=== PATIENT | female | born 1995 | race African-American/Black ===

== ENCOUNTER 2017-07-09 23:23 | Observation (INO) | payer MEDICAID ==
[2017-07-10] MEDS ORDERED: FERR140T2 PO (07:24)
[2017-07-10] MEDS ORDERED: PREN-96 PO (07:24)
== END 2017-07-10 01:24 | disposition home or self-care (01) | DRG 955 ==
LOC: LDRP 23:23
PROVIDERS: ADMIT Specialist; ATTEND Specialist
DX: O26.899 Other specified pregnancy related conditions, unspecified trimester (principal); R10.9 Unspecified abdominal pain; Z3A.00 Weeks of gestation of pregnancy not specified
CPT/HCPCS: 59025; 76815; 81002; G0378

== ENCOUNTER 2024-10-10 14:50 | Observation (INO) | payer MEDICAID ==
[~2024-10-10 14:50] MED LIST: FERR140T3 PO; PREN-96 PO
--- NOTE | 2024-10-10 16:20 | DVH ---
EXAM: US OB ULTRASOUND COMP GTR 14 WKS CLINICAL HISTORY: s/p fall COMPARISON: None TECHNIQUE: Grayscale, color-flow Doppler, and spectral Doppler ultrasound of the pelvis is performed by transabdominal technique. Findings: Single live intrauterine in breech presentation with heart rate of 133 bpm. Cervical os appears closed and measures 3.4 cm in length. Placenta is anterior in location without evidence of previa, accreta, or abruption. Limited evaluation of anatomy. Estimated gestational age 20 weeks 1 day based on parameters which include biparietal diameter 4.6 cm, head circumference 17.7 cm, abdominal circumference 15.1 cm, and femur length 3.2 cm. Standar d ratios within normal limits. Estimated weight 337 g (0 lb 12 oz ). MVP 6.1 cm. Impression: 1. Single live intrauterine in breech presentation with heart rate of 133 bpm. 2. Estimated gestational age 20 weeks 1 day with estimated date of confinement 02/26/2025.
--- NOTE | 2024-10-10 16:28 | DVHDS2 ---
Physician Discharge Progress N Final Diagnosis: s/p fall Operations or Procedures: Operations or Procedures S: 29yo IUP@20.3wks presents to OB triage after falling and hitting her left lower abdomen on a railing at 1500. Has muscle soreness at side that radiates down her left leg. +FM, denies UCs/VB/LOF. No PNC due to [employer] insurance issues. Taking PNV and iron. Tylenol PO offered, pt declined, states "she does not like to take medications" OB hx: x1 PMH: anemia and chronic bronchitis O: VSS +FHTs via doppler TOCO: no UCs noted A: 29yo IUP@20.3wks s/p fall P: D/C home Recommended OTC arnica gel for muscle soreness. SAB precautions reviewed. Dr. Weinstein consulted, agrees with POC. Referred to [facility], appt made with Dr. Weinstein for 10/11/24 at 0900. 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 Findings: Single live intrauterine in breech presentation with heart rate of 133 bpm. Cervical os appears closed and measures 3.4 cm in length. Placenta is anterior in location without evidence of previa, accreta, or abruption. Limited evaluation of anatomy. Estimated gestational age 20 weeks 1 day based on parameters which include biparietal diameter 4.6 cm, head circumference 17.7 cm, abdominal circumference 15.1 cm, and femur length 3.2 cm. Standard ratios within normal limits. Estimated weight 337 g (0 lb 12 oz ). MVP 6.1 cm. Impression: 1. Single live intrauterine in breech presentation with heart rate of 133 bpm. 2. Estimated gestational age 20 weeks 1 day with estimated date of confinement 02/26/2025. ATED BY: ANA MARIA NICOLAS DO DICTATED DATE/TIME: 10/10/24 1618 SIGNED BY: ANA MARIA NICOLAS DO SIGNED DATE/TIME: 10/10/24 1618 CC: Condition on Discharge: Stable Disposition: Home Discharge Instructions: Diet: Regular Activity: No Restrictions, As Tolerated Medications: see med list Follow Up Care: Specialist: Referred to [facility], appt made with Dr. Weinstein for 10/11/24 at 0900. Discharge Statement: "Patient was advised to return to the ER or call 911 if any headaches, dizziness, shortness of breath, chest pain, abdominal pain, bleeding, fevers, or worsening of medical condition. Patient was counseled about treatment plan, medications, possible side effects, patientverbalized understanding. All questions were answered to the best of my ability. This discharge took greater then 30 minutes in planning, reviewing documentation, counseling the patient, and discussing with other team members." Visit Coding OBGYN Date of Service: Oct 10, 2024 Billing Provider: JOSE MANUEL ELLINGTON CNM COMMUNITY RELATIONS REPRESENTATIVE Common Visit Codes: 92480-[id number] OBS CARE (HIGH) JOSE MANUEL ELLINGTON CNM Oct 10, 2024 16:28
== END 2024-10-10 16:45 | disposition home or self-care (01) ==
LOC: LDRP 14:50 → UNDOADMOB 14:50 → LDRP 15:06 → UNDODISOB 16:45
PROVIDERS: ADMIT Obstetrics & Gynecology; ATTEND Obstetrics & Gynecology
DX: O26.893 Other specified pregnancy related conditions, third trimester (principal); R10.32 Left lower quadrant pain; W18.39XA Other fall on same level, initial encounter; Y93.89 Activity, other specified; Y92.89 Other specified places as the place of occurrence of the external cause; Y99.8 Other external cause status; Z98.890 Other specified postprocedural states; Z79.899 Other long term (current) drug therapy
CPT/HCPCS: 76805; 81002; 94760; G0378

== ENCOUNTER 2024-11-04 17:10 | Observation (INO) | payer OTHER ==
[~2024-11-04] VITALS: Ht 165.1 cm; Wt 81.2 kg
--- NOTE | 2024-11-04 18:34 | DVH ---
EXAM: US OB ULTRASOUND COMP GTR 14 WKS HISTORY: Decreased movement COMPARISON: US OB ULTRASOUND COMP GTR 14 WKS on DOS: 10/10/24 TECHNIQUE: Transabdominal and endovaginal real time de la vega scale, color, and doppler evaluation. Perman ent images are maintained in the patient record. FINDINGS: GA by previous US/LMP: 24 weeks, 6 days VICENTE by previous US/LMP: 02/18/25 US GESTATIONAL AGE: 24 weeks, 2 days US VICENTE: 02/22/25 ESTIMATED WEIGHT: 693 g. HEART RATE: 157 bpm BPD: 5.89 cm, 24 weeks 0 days HC: 22.05 cm, 24 weeks 0 days AC: 19.84 cm, 24 weeks 3 days FL: 4.39 cm, 24 weeks 3days HC/AC: 1.11 ANATOMY: Normal head, 4 chamber heart, face, spine, stomach, kidneys, cord insertion, bladder, extrem ities Single live intrauterine . Anterior placenta. No placenta abruption. IMPRESSION: 1. Single viable gestation with normal cardiac heart rate.
[2024-11-04 18:37] LABS: Hemoglobin 11.2 g/dL (12.2-16.2); Nucleated Red Blood Cells % 0.0 %
[2024-11-04 18:38] LABS: Hematocrit 32.6 % (36.0-46.0); Mean Corpuscular Hemoglobin 26.6 pg (28.0-32.0); Mean Corpuscular Volume 77.6 fL (80.0-100.0)
[2024-11-04 18:42] LABS: Alanine Aminotransferase 10 U/L (7-40); Albumin 3.9 g/dL (3.2-4.8); Alkaline Phosphatase 75 U/L (46-116); Anion Gap 7 (5-15); Calcium 8.9 mg/dL (8.7-10.4); Carbon Dioxide 21 mmol/L (20-31); Glucose 76 mg/dL (74-106); Potassium 3.9 mmol/L (3.5-5.1); Sodium 136 mmol/L (136-145); Total Protein 7.0 g/dL (5.7-8.2)
[2024-11-04 18:44] LABS: BUN/Creatinine Ratio 11.1 (10.0-20.0); Bilirubin, Total 0.2 mg/dL (0.2-1.0); Blood Urea Nitrogen < 5 mg/dL (9-23); Chloride 108 mmol/L (98-107)
[2024-11-04 18:53] LABS: INR 0.95 (0.9-1.15); Partial Thromboplastin Time 27.9 SEC (24.5-34.5); Prothrombin Time 10.1 sec (9.3-11.8)
[2024-11-04] MEDS: LACTATED RINGER'S 1,000 ML IV ONE (19:14)
[2024-11-04] MEDS: ONDANSETRON HCL 4 MG/2 ML VIAL IV PRN (19:14)
[2024-11-04] MEDS: LACTATED RINGER'S 1,000 ML IV SCH (19:15)
[2024-11-04] MEDS: FAMOTIDINE (10MG/ML) 2ML VL IV ONE (19:40)
--- NOTE | 2024-11-04 20:20 | DVHDS2 ---
Physician Discharge Progress N Final Diagnosis: Diarrhea, Nausea and vomiting IUP at 24weeks Discharged from OB to ER due to pt complains of chest pain and blood in the stool Operations or Procedures: Operations or Procedures S: Per report pt presented to place with report of diarrhea, nausea and vomiting x weeks, weight loss and decreased movement Also decreased movement .O: EFM: FHR baseline 140 moderate variability with acceleration, no deceleration UC: no noted with toco, none noted on palpation and pt reports she doesn't feel any contraction OB ultrasound: live SIUP @US GA 24w 6d, FHR 157bpm A: IUP at 24w Nausea and Vomiting P: IV hydration in progress at time of assuming care Zofran 4mg IV Patient later reports feeling movement for the first time today. Per RN patient still vomited about 25minutes after Zofran administration Pepcid ordered 1934: Call received from RN that patient reports chest pain P: Consulted with Dr. Emelia Weinstein, recommends ER evaluation Patient also now reports she had blood in her stool Discharge to ER to be evaluated for non-obstetric symptoms reported by patient Consultations: Consultations Consulted with Dr. Emelia Weinstein, regarding chest pain reported by the patient She recommends ER evaluation Discharge to ER to be evaluated for non-obstetric symptoms reported by patient Patient also now reports she had blood in her stool Commentary: Commentary Obstetrically stable at time of discharge to ER. Condition on Discharge: Stable Disposition: Acute Care Facility Discharge Instructions: Diet: Regular, See Comment Diet comment: Or as recommended after eveluation by ER provider(s) Activity: No Restrictions, As Tolerated Follow Up/Referral: Advised to follow up with a OB Provider within the next 3days Medications: None Follow Up Care: Discharge Statement: "Patient was advised to return to the ER or call 911 if any headaches, dizziness, shortness of breath, chest pain, abdominal pain, bleeding, fevers, or worsening of medical condition. Patient was counseled about treatment plan, medications, possible side effects, patientverbalized understanding. All questions were answered to the best of my ability. This discharge took greater then 30 minutes in planning, reviewing documentation, counseling the patient, and discussing with other team members." Visit Coding OBGYN Date of Service: Nov 04, 2024 Billing Provider: PATRICIA CAO CNM CALL OUT OPERATOR Common Visit Codes: 24905-NCA/OBS SAME DATE (HIGH) CALL OUT OPERATOR Procedure Codes: 30584-16- NON-STRESS TEST PATRICIA CAO CNM Nov 04, 2024 20:20
[2024-11-04] MEDS ORDERED: PREN-96 PO (21:47)
[2024-11-04] MEDS ORDERED: PYRI50TA PO (21:47)
== END 2024-11-04 20:07 | disposition home or self-care (01) ==
LOC: LDRP 17:10
PROVIDERS: ADMIT Obstetrics & Gynecology; ATTEND Obstetrics & Gynecology
DX: O36.8120 Decreased fetal movements, second trimester, not applicable or unspecified (principal); O21.2 Late vomiting of pregnancy; O99.891 Other specified diseases and conditions complicating pregnancy; R07.89 Other chest pain; R19.5 Other fecal abnormalities; R19.7 Diarrhea, unspecified; Z3A.24 24 weeks gestation of pregnancy; Z98.890 Other specified postprocedural states; Z79.899 Other long term (current) drug therapy
CPT/HCPCS: 36415; 76805; 80053; 81002; 83036; 85025; 85610; 85730; 86703; 86762; 86780; 86803; 86850; 86900; 86901; 87340; 94760; 96361; 96374; 96375; G0378; 96365; 96366

== ENCOUNTER 2024-11-04 20:12 | Emergency (ER) | payer OTHER ==
[~2024-11-04] VITALS: Ht 165.1 cm; Wt 83.2 kg
[2024-11-04 20:14] VITALS: BP 103/57; PULSE 78; RESP 20; TEMP 97.9; O2SAT 99
[2024-11-04] MEDS ORDERED: PYRI50TA PO (21:47)
[2024-11-04] MEDS ORDERED: PREN-96 PO (21:47)
--- NOTE | 2024-11-04 21:55 | ED.PDOC ---
History of Present Illness HPI Comments 29-year-old female who presents with chief complaint of chest pain, chronic nausea and vomiting, and bloody stools with diarrhea. Patient reports being 28 weeks and developing chest pain gagging, recently after dealing with 2 week history of diarrhea with occasional blood in stools and nausea and vomiting since this started for . She states it being sent over from Labor [facility] after being evaluated current status of her . Patient reports on being Zofran, and ultrasound imaging study that showed no current concern for . No establish OBGYN care, currently. Denies having any further associated symptoms. REVIEW OF SYSTEMS: General: No fever, no chills, or fatigue HEENT: No sore throat, no earache, no congestion, no neck pain. Cardiac: Chest pain. No palpitations. Lungs: No shortness of breath, no cough. GI: Nausea, vomiting, diarrhea, bloody stools, no constipation, no abdominal pain : No dysuria, frequency, or urgency. No hematuria. Musculoskeletal: No joint pain , no joint swelling, no extremity edema. Skin: No rash, no itching. Neuro: No headache, no dizziness, no weakness PHYSICAL EXAM: General: Awake, alert and oriented. No acute distress. Skin: Skin in warm, dry and intact. Appropriate color for ethnicity. HEENT: The head is normocephalic and atraumatic. Conjunctivae are clear without exudates or hemorrhage. Sclera is non-icteric. EOM are intact. No signs of nystagmus. Eyelids are normal in appearance without swelling or lesions. Oral mucosa is pink and moist Neck: The neck is supple with normal range of motion. No JVD. Cardiac: Heart rate and rhythm are normal. No murmurs, gallops, or rubs are auscultated. Respiratory: No signs of respiratory distress. Lung sounds are clear in all lobes bilaterally without rales, rhonchi, or wheezes. Abdominal: Abdomen. Abdomen is soft, non-tender without distention, guarding o r rigidity. Bowel sounds are present and normoactive in all four quadrants. Extremities: Upper and lower extremities are atraumatic in appearance without deformity or edema. Neurological: The patient is awake, alert and oriented to person, place, and time with normal speech. Speech is clear. There is no facial asymmetry. Ambulating without difficulty. Psychiatric: Appropriate mood and affect. Good judgement and insight. Chief Complaint: Nausea/Vomiting Time Seen by MD: 21:01 Primary Care Provider: NONE Allergies: Coded Allergies: Doxycycline (Verified Allergy, Unknown, 10/10/24) Penicillins (Verified Allergy, Unknown, 10/10/24) Tramadol (Verified Allergy, Unknown, 10/10/24) Home Meds Active Scripts Vit W/ Ferrous Fumara ( One Daily) Daily Tab, 1 TAB PO DAILY, #90 TAB 3 Refills Prov:PANCHO RO MD 11/04/24 Pyridoxine HCl (Pyridoxine Hydrochloride) 50 Mg Tab, 25 MG PO Q4HPRN PRN for 7 Days, #18 TAB Prov:PANCHO RO MD 11/04/24 Reported Medications Ferrous Sulfate (FERROUS SULFATE) 140 Mg Tab, 140 MG PO, TAB 07/10/17 Vit W/ Ferrous Fumara ( One Daily) Daily Tab, 1 TAB PO DAILY, #90 TAB 3 Refills 07/10/17 Information Source: Patient Mode of Arrival: Ambulatory Past Medical History PAST MEDICAL HISTORY: Denies Surgical History: Denies all surgeries ZIGZAG TUNNEL ELASTIC OPERATOR History: No Pertinent ZIGZAG TUNNEL ELASTIC OPERATOR History Family History Family History: Unknown Social History Smoker: Non-Smoker Alcohol: Denies ETOH Use Drugs: Denies Drug Use Lives In: Home Was a procedure done? Was a procedure done?: No Differential Dx Considerations may include: Differential diagnoses considered include: Abdominal aortic aneurysm, [place], esopha geal rupture, intestinal obstruction, mesenteric ischemia, perforated viscus or solid organ rupture, CHF with hepatomegaly, pneumonia, abscess, appendicitis, biliary disease, diverticulitis, gastritis, gastroenteritis, hepatitis, hernia, inflammatory bowel disease, pancreatitis, peptic ulcer disease, urinary tract infection, ureteral colic, constipation, GERD, irritable syndrome, abdominal wall pain, nonspecific abdominal pain, herpes zoster, nephrolithiasis. [ ]Also ruptured ectopic , ovarian torsion/cyst, tubo-ovarian abscess, PID, endometriosis, mittleschmerz. X-Ray, Labs, Meds, VS Vital Signs Date Time Temp Pulse Resp B/P (MAP) Pulse Ox O2 Delivery O2 Flow Rate FiO2 11/04/24 20:14 97.9 78 20 103/57 99 97.9 Time of 1ST Reevaluation: 21:30 Reevaluation 1ST: Unchanged Patient Education/Counseling: Treatment, Need For Follow Up Family Education/Counseling: No Family Present SEPSIS Sepsis Screen Date sepsis recognized/suspect: Nov 04, 2024 Time Sepsis recognized/suspect: 2017 Recent Procedure: No On Antibiotic Therapy: No Respiratory Rate >20: No Heart Rate >90: No Temp<36 C (96.8 F) or >38.3 C: No SBP <90 or MAP <65 mmHG: No New Acute Mental Status Change: No Is the patient on CPAP, BIPAP,: No Vital Signs Date Time Temp Pulse Resp B/P (MAP) Pulse Ox O2 Delivery O2 Flow Rate FiO2 11/04/24 20:14 97.9 78 20 103/57 99 97.9 Departure 1 Departure Time of Disposition: 21:43 Impression: Primary Impression: Nausea and vomiting during Disposition: 04 [facility] Condition: Stable Additional Instructions: ED DISCHARGE INSTRUCTIONS Instructions: Please read all instructions provided in this packet carefully. Although you have been discharged from the Emergency Department, this does not mean that you have a "clean bill of health". []No definitive diagnosis for your symptoms has been made today. It is possible that you are in the process of developing a serious illness. This is why you must return to the ED without fail if any new or worsening symptoms (especially if your symptoms include chest pain, trouble breathing, abdominal pain, fever, headache, confusion, trouble seeing, or trouble walking) It is also very important that you see a primary care provider (PCP) within the next 3-5 days to follow up. If you are unable to get an appointment, return to the ED for re-evaluation. e-Prescriptions Vit W/ Ferrous Fumara ( One Daily) Daily Tab 1 TAB PO DAILY, #90 TAB 3 Refills Prov: PANCHO RO MD 11/04/24 Pyridoxine HCl (Pyridoxine Hydrochloride) 50 Mg Tab 25 MG PO Q4HPRN PRN for 7 Days, #18 TAB Prov: PANCHO RO MD 11/04/24 Comments MDM: 29-year-old female who presented with nausea, vomiting, diarrhea during . Patient is seen and evaluated in labor and delivery rate with normal workup and evaluation. Patient reported chest pain only with coughing. No chest pain on the emergency department. Patient felt stable for discharge home advised prompt follow up with shipping team leader. - I reviewed the following notes from the pt's past medical encounters: N/A The following tests were ordered, and results were reviewed by me: (See diagnostic results section) The following test were independently interpreted by me: EKG Additional information was gathered from interviewing the following independent historians: N/A I reviewed and agreed with the following test results read by other providers: N/A I discussed treatments and results with patient Decision regarding hospitalization or escalation of hospital level of care: Risks and benefits of admission for further treatment of patient's condition was considered however due to patient's stable condition patient will be discharged to follow up closely or return to care for worsening of condition or inability to follow up. Critical Care Note Critical Care Time?: No Stability Stability form required: No Heart Score Heart Score: Heart Score Response (Comments) Value History N/A 0 EKG N/A 0 Age N/A 0 Risk Factors N/A 0 Troponin N/A 0 Total 0 I personally scribed for PANCHO RO MD ([email or web address]) on 11/04/24 at 22:08. Electronically submitted by Júnior Knight ([email or web address]). PANCHO RO MD Nov 04, 2024 21:55
== END 2024-11-04 21:55 | disposition left against medical advice (07) ==
LOC: ER 20:12
DX: O21.9 Vomiting of pregnancy, unspecified (principal); Z88.0 Allergy status to penicillin; Z88.1 Allergy status to other antibiotic agents; Z88.5 Allergy status to narcotic agent; Z3A.28 28 weeks gestation of pregnancy

== ENCOUNTER 2024-11-12 12:43 | Observation (INO) | payer OTHER ==
[~2024-11-12 12:43] MED LIST changes: +PYRI50TA PO
[2024-11-12] MEDS ORDERED: ACET-1304 PO (16:13)
[2024-11-12] MEDS ORDERED: CEPH500C PO (16:13)
== END 2024-11-12 14:10 | disposition home or self-care (01) ==
LOC: UNDOADMOB 12:43 → LDRP 12:43
PROVIDERS: ADMIT Obstetrics & Gynecology; ATTEND Obstetrics & Gynecology
DX: O26.892 Other specified pregnancy related conditions, second trimester (principal); R25.2 Cramp and spasm; Z3A.25 25 weeks gestation of pregnancy; Z98.890 Other specified postprocedural states
CPT/HCPCS: 81002; 94760; G0378

== ENCOUNTER 2024-11-12 14:33 | Emergency (ER) | payer OTHER ==
[~2024-11-12] VITALS: Ht 167.6 cm; Wt 73.3 kg
[2024-11-12 14:40] VITALS: BP 130/44; PULSE 86; RESP 19; TEMP 98.1; O2SAT 97
--- NOTE | 2024-11-12 15:28 | ED.PDOC ---
History of Present Illness(SKN HPI Comments This is a 29 year old female presenting to the ED with chief complaint of abscess. Patient reports that she has been experiencing an abscess to her vaginal area with yellow discharge for the past 4 days. Patient relays that it has become painful to sit and go to the restroom due to the abscess. Patient s tates she was evaluated by L&D, cleared to come to the ED today for treatment. Patient is 26 weeks and is . Patient notes being recently diagnosed with a UTI as well. Patient denies any fever, chills, or bleeding. Chief Complaint: Abscess Time Seen by MD: 15:26 Primary Care Provider: NONE History of Present Illness: Nurses Notes, Medications, Allergies Allergies: Coded Allergies: Doxycycline (Verified Allergy, Unknown, 10/10/24) Penicillins (Verified Allergy, Unknown, 10/10/24) Tramadol (Verified Allergy, Unknown, 10/10/24) Home Meds Active Scripts Vit W/ Ferrous Fumara ( One Daily) Daily Tab, 1 TAB PO DAILY, #90 TAB 3 Refills Prov:PANCHO RO MD 11/04/24 Pyridoxine HCl (Pyridoxine Hydrochloride) 50 Mg Tab, 25 MG PO Q4HPRN PRN for 7 Days, #18 TAB Prov:PANCHO RO MD 11/04/24 Reported Medications Ferrous Sulfate (FERROUS SULFATE) 140 Mg Tab, 140 MG PO, TAB 07/10/17 Vit W/ Ferrous Fumara ( One Daily) Daily Tab, 1 TAB PO DAILY, #90 TAB 3 Refills 07/10/17 Information Source: Patient Mode of Arrival: Ambulatory Severity: Moderate Timing: Days Duration: Since onset Prehospital treatment: None Location: Other (vagina) Mechanism: Spontaneous Onset Object: None Condition of Object: None Retained Foreign Body: No Wound Type: Abscess Immunization Status of Animal: NA Tetanus: Unknown Past Medical History Past Medical History (Other): Approximate 26 week Surgical History: Denies all surgeries AIR POLLUTION ANALYST History: No Pertinent AIR POLLUTION ANALYST History Family History Family History: Unknown Social History Smoker: Non-Smoker Alcohol: Denies ETOH Use Drugs: Denies Drug Use Lives In: Home Constitutional: denies: chills, diaphoresis, fatigue, fever, malaise, sweats, weakness, others EENTM: denies: blurred vision, double vision, ear bleeding, ear discharge, ear drainage, ear pain, ear ringing, eye pain, eye redness, hearing loss, mouth pain, mouth swelling, nasal discharge, nose bleeding, nose congestion, nose pain, photophobia, tearing, throat pain, throat swelling, voice changes, others Respiratory: denies: cough, hemoptysis, orthopnea, SOB at rest, shortness of breath, SOB with excertion, stridor, wheezing, others Cardiovascular: denies: chest pain, dizzy spells, diaphoresis, Dyspnea on exertion, edema, irregular heart beat, left arm pain, lightheadedness, palpitations, PND, syncope, others Gastrointestinal: denies: abdomen distended, abdominal pain, blood streaked bowels, constipated, diarrhea, dysphagia, difficulty swallowing, hematemesis, melena, nausea, poor appetite, poor fluid intake, rectal bleeding, rectal pain, vomiting, others Genitourinary: denies: abnormal vagina bleeding, burning, dyspareunia, dysuria, flank pain, frequency, hematuria, incontinence, pain, , vagina discharge, urgency, others Neurological: denies: dizziness, fainting, headache, left sided numbness, left sided weakness, numbness, paresthesia, pre-existing deficit, right sided numbn ess, right sided weakness, seizure, speech problems, tingling, tremors, weakness, others Musculoskeletal: denies: back pain, gout, joint pain, joint swelling, muscle pain, muscle stiffness, neck pain, others Integumetry: reports: others (abscess to vaginal region); denies: bruises, change in color, change in hair/nails, dryness, laceration, lesions, lumps, rash, wounds Allergic/Immunocompromised: denies: Difficulty Healing, Frequent Infections, Hives, Itching, others Hematologic/Lymphatic: denies: anemia, blood clots, easy bleeding, easy bruising, swollen glands, others Endocrine: denies: excessive hunger, excessive sweating, excessive thirst, excessive urination, flushing, intolerance to cold, intolerance to heat, unexplained weight gain, unexplained weight loss, others Psychiatric: denies: anxiety, bipolar disorder, depression, hopeless, panic disorder, schizophrenia, sleepless, suicidal, others All Other Systems: Reviewed and Negative Physical Exam General Appearance: No Apparent Distress HEENT: Other (Pupils and face symmetric. Moist mucous membranes.) Neck: Full Range of Motion, Normal Inspection Respiratory: Lungs Clear, No Accessory Muscle Use, No Respiratory Distress, Normal Breath Sounds Cardiovascular: No Edema, No JVD, Regular Rate/Rhythm Breast Exam: Deferred Gastrointestinal: Non Tender, Soft Genitalia: Other (Approximate 1.5 x 1.5 cm fluctuant tender mass left labia majora. No discharge. No vaginal bleeding or abnormal vaginal discharge.) Pelvic: Deferred Rectal: Deferred Extremities: Normal inspection, Normal range of motion, Non-tender, No pedal edema Neurologic: Alert (Oriented x4), Normal Affect, Normal Mood, Other (Ambulatory) Cerebellar Function: NOT DONE Reflexes: NOT DONE Skin: Dry, Normal Color, Warm Lymphatic: NOT DONE Was a procedure done? Was a procedure done?: Yes Sedation Sedation?: No Incision and Drainage Incision and Drainage: Abscess Location Left labia Anesthetic: Lidocaine Preparation: Betadine, Saline Incision and Wound: Pus, Blood, Irrigated Informed consent obtained: Yes Risks/benefits/alt described: Yes Notes Left labial fluctuant area was cleaned and draped in the usual sterile fashion. It was locally anesthetized with 1% lidocaine. Approximately 1 cc of bloody purulent discharge was aspirated with an 18 gauge needle. An approximate 5 mm incision was made and the remainder of the bloody/purulent discharge was expressed. Patient was not able to tolerate wound packing due to pain. Differential Diagnosis (INTG) Differential Diagnosis: Abscess, Cellulitis, Other (Bartholin cyst) X-Ray, Labs, Meds, VS Vital Signs Date Time Temp Pulse Resp B/P (MAP) Pulse Ox O2 Delivery O2 Flow Rate FiO2 11/12/24 14:40 98.1 86 19 130/44 97 98.1 X-Ray, Labs, Meds, VS Comment 29-year-old female with history pertinent for current 26 week presenting with left labial pain and fluid collection Vitals remarkable for BP 130/44 Exam remarkable for an approximate 1 cm tender, erythematous left labial fluid collection Rhythm strip independently interpreted by me: Sinus rhythm, rate eighty-six, no ectopy. Patient treated with the following in the ED: Aspiration of the Bartholin's abscess followed by incision and drainage. Patient could not tolerate wound packing due to pain. Please see procedure note for details. On re-evaluation, patient is well-appearing with stable vitals. Patient states she does not currently have an OBGYN due to problems with insurance. Patient advised to follow-up with her OBGYN in 2 days for re-evaluation, or return to ER if she is unable to establish care with an OBGYN. She will also be referred to Dr. Clemente. Rx keflex, tylenol Time of 1ST Reevaluation: 16:00 Reevaluation 1ST: Improved Patient Education/Counseling: Diagnosis, Treatment Family Education/Counseling: No Family Present SEPSIS Sepsis Screen Date sepsis recognized/suspect: Nov 12, 2024 Time Sepsis recognized/suspect: 1439 Recent Procedure: No On Antibiotic Therapy: No Respiratory Rate >20: No Heart Rate >90: No Temp<36 C (96.8 F) or >38.3 C: No SBP <90 or MAP <65 mmHG: No New Acute Mental Status Change: No Is the patient on CPAP, BIPAP,: No Vital Signs Date Time Temp Pulse Resp B/P (MAP) Pulse Ox O2 Delivery O2 Flow Rate FiO2 11/12/24 14:40 98.1 86 19 130/44 97 98.1 Departure 1 Departure Time of Disposition: 16:11 Impression: Primary Impression: Bartholin's gland abscess Disposition: HOME / SELF CARE / HOMELESS Condition: Stable Referrals: VANESSA CLEMENTE DO Additional Instructions: I have prescribed antibiotics and pain medication which are safe in . Follow-up to establish care with an OBGYN in 1-2 days. If unable to follow-up within the next 2 days, return to ER for re-evaluation to ensure proper healing, or follow-up directly with Dr. Clemente. e-Prescriptions Acetaminophen (Tylenol Extra Strength) 500 Mg Tab 1000 MG PO Q6HP PRN, #30 TAB Prov: RYDER HASSAN MD 11/12/24 Cephalexin Monohydrate (Cephalexin) 500 Mg Cap 1 CAP PO QID for 10 Days, #40 CAP Prov: RYDER HASSAN MD 11/12/24 Discharged With: Self Critical Care Note Critical Care Time?: No Stability Stability form required: No Heart Score Heart Score: Heart Score Response (Comments) Value History N/A 0 EKG N/A 0 Age N/A 0 Risk Factors N/A 0 Troponin N/A 0 Total 0 I personally scribed for RYDER HASSAN MD ([email or web address]) on 11/12/24 at 15:28. Electronically submitted by lEie Murillo ([email or web address]). I personally scribed for RYDER HASSAN MD ([email or web address]) on 11/12/24 at 15:53. Electronically submitted by Elie Murillo ([email or web address]). RYDER HASSAN MD Nov 12, 2024 15:28
[2024-11-12] MEDS ORDERED: ACET-1304 PO (16:13)
[2024-11-12] MEDS ORDERED: CEPH500C PO (16:13)
--- NOTE | 2024-11-12 16:47 | DVHDS2 ---
Discharge Summary Date of Admission Date of Discharge: Nov 12, 2024 Admitting Diagnosis Left Bartholin cyst, Bartholin's cyst pain 25 week IUP reassuring heart tones Brief Hx & Hospital Course: Patient seen and evaluated once heart tones reassuring and maternal status established [facility] ER for I and D of Bartholin's cyst Consults/Reason for consult Twenty-five week IUP Bartholin's cyst Operations or Procedures NST performed Condition at Discharge: Good Final Diagnosis/Problems List Bartholin cyst left labia majora, 25 week reassuring heart tones Discharge Disposition: Sent to ER for incision drainage of left Bartholin's cyst Discharge Instruct/Medications Diet: Regular Activity: Light activity (Pelvic rest kick counts) Medications: None Scheduled Cephalexin Monohydrate (Cephalexin), 1 CAP PO QID Vit W/ Ferrous Fumara ( One Daily), 1 TAB PO DAILY, (Reported) Vit W/ Ferrous Fumara ( One Daily), 1 TAB PO DAILY Scheduled PRN Acetaminophen (Tylenol Extra Strength), 1,000 MG PO Q6HP PRN Pyridoxine HCl (Pyridoxine Hydrochloride), 25 MG PO Q4HPRN PRN Miscellaneous Medications Ferrous Sulfate (Ferrous Sulfate), 140 MG PO, (Reported) Discharge Statement: "Patient was advised to return to the ER or call 911 if any headaches, dizziness, shortness of breath, chest pain, abdominal pain, bleeding, fevers, or worsening of medical condition. Patient was counseled about treatment plan, medications, possible side effects, patientverbalized understanding. All questions were answered to the best of my ability. This discharge took greater then 30 minutes in planning, reviewing documentat ion, counseling the patient, and discussing with other team members." ASSESSMENT ASSESSMENT Assessment Visit Coding OBGYN Date of Service: Nov 12, 2024 Billing Provider: VANESSA ORR DO MATERIALS TECH Common Visit Codes: 49101-BVH/OBS SAME DATE (LOW), 73598-BEN/OBS SAME DATE (MOD), 50338-IVX/OBS SAME DATE (HIGH) MATERIALS TECH Procedure Codes: 93439-73- NON-STRESS TEST VANESSA ORR DO Nov 12, 2024 16:46
== END 2024-11-12 16:21 | disposition home or self-care (01) ==
LOC: ER 14:33
DX: O23.592 Infection of other part of genital tract in pregnancy, second trimester (principal); O23.42 Unspecified infection of urinary tract in pregnancy, second trimester; N39.0 Urinary tract infection, site not specified; Z88.5 Allergy status to narcotic agent; Z88.1 Allergy status to other antibiotic agents; Z88.0 Allergy status to penicillin; Z3A.26 26 weeks gestation of pregnancy
CPT/HCPCS: 56420

== ENCOUNTER 2024-11-17 20:18 | Observation (INO) | payer OTHER ==
[~2024-11-17 20:18] MED LIST changes: +ACET-1304 PO; +CEPH500C PO
--- NOTE | 2024-11-17 23:34 | DVHDS2 ---
Physician Discharge Progress N Final Diagnosis: IUP at 25w 6d Reactive FHR Tracing Secondary Diagnosis: Vulva cyst Operations or Procedures: Operations or Procedures S: Ms Mccurdy a 29yo G2,1001 with EDC of 02/24/2025, EGA 25w 6d presents to [facility] with report of decreased movements. no LOF, no VB, no MCNEAL, vision changes or epigastric pain Also reports labial cyst for which she is currently taking Keflx 500mg 4times a day O: A&O x3, NAD, well groomed. pleasant. Appropriate and normal mood and affect Afebrile, VSS Respiration unlabored Heart and lungs sounds: normal Abdomen: Gravid, non-tender to palpation. P: EFM Oral hydration with water; given to patient Re-assessment at 20:59 S: Patient now reports she feels movements; wish she had known that drinking water will help, could have done that at home O: EFM: FHR baseline 135bpm with moderate variability and accelerations, no deceleration A: IUP at 25w 6d Reactive FHR Tracing, Category I Labial Cyst P: Discharge home Advised to increase water intake Advised to f/u on cyst with ER provider or her OB care provider if needed 2nd trimester emergency signs and symptoms reviewed with patient, advised to go to ER if any Advised to f/u on with her OB care provider flower; Condition on Discharge: Stable Disposition: Home Discharge Instructions: Diet: Regular Activity: No Restrictions, As Tolerated Medications: none Follow Up Care: Discharge Statement: Follow up with OB care Provider within 24-48hours Increase water intake 2nd trimester emergency S&S FMC, labor & pre-eclampsia precautions reviewed with pt; advised to seek health care if any "Patient was advised to return to the ER or call 911 if any headaches, dizziness, shortness of breath, chest pain, abdominal pain, bleeding, fevers, or worsening of medical condition. Patient was counseled about treatment plan, medications, possible side effects, patientverbalized understanding. All questions were answered to the best of my ability. This discharge took greater then 30 minutes in planning, reviewing documentation, counseling the patient, and discussing with other team members." Visit Coding OBGYN Date of Service: Nov 17, 2024 Billing Provider: PATRICIA CAO CNM SANITARIAN AIDE Common Visit Codes: 29412-VIX/OBS SAME DATE (HIGH) SANITARIAN AIDE Procedure Codes: 38070-23- NON-STRESS TEST PATRICIA CAO CNM Nov 17, 2024 23:34
== END 2024-11-17 21:23 | disposition home or self-care (01) ==
LOC: LDRP 20:18
PROVIDERS: ADMIT Obstetrics & Gynecology; ATTEND Obstetrics & Gynecology
DX: O23.592 Infection of other part of genital tract in pregnancy, second trimester (principal); N90.7 Vulvar cyst; O36.8120 Decreased fetal movements, second trimester, not applicable or unspecified; Z3A.25 25 weeks gestation of pregnancy; Z98.890 Other specified postprocedural states
CPT/HCPCS: 81002; 94760; G0378; 59025

== ENCOUNTER 2024-11-17 21:27 | Emergency (ER) | payer OTHER ==
[~2024-11-17] VITALS: Ht 165.1 cm; Wt 82.8 kg
[2024-11-17 21:57] LABS: Urine Protein, UAD Negative (Negative)
[2024-11-17] MEDS: LIDOCAINE 1% HCL (LOCAL ANESTH.) INJ 20ML MDV ID ONE (22:24)
--- NOTE | 2024-11-17 22:33 | ED.PDOC ---
History of Present Illness(SKN HPI Comments Pt reports a cyst on the right upper inner thigh x 1 week. Pain currently at a 10/10 making it difficult to walk. Pt reports some nausea, denies any fever or vomiting. Patient states recently had Bartholin cyst drained currently on Keflex has five day course left. Pt currently 26 weeks . Denies abdominal pain, cramping, vaginal bleeding, fever chills, nausea or vomiting. Chief Complaint: Lower Extremity Time Seen by MD: 21:41 Primary Care Provider: NONE History of Present Illness: Nurses Notes, Medications, Allergies Allergies: Coded Allergies: Doxycycline (Verified Allergy, Unknown, 10/10/24) Penicillins (Verified Allergy, Unknown, 10/10/24) Tramadol (Verified Allergy, Unknown, 10/10/24) Home Meds Active Scripts Acetaminophen (Tylenol Extra Strength) 500 Mg Tab, 1000 MG PO Q6HP PRN, #30 TAB Prov:RYDER HASSAN MD 11/12/24 Cephalexin Monohydrate (Cephalexin) 500 Mg Cap, 1 CAP PO QID for 10 Days, #40 CAP Prov:RYDER HASSAN MD 11/12/24 Vit W/ Ferrous Fumara ( One Daily) Daily Tab, 1 TAB PO DAILY, #90 TAB 3 Refills Prov:PANCHO RO MD 11/04/24 Pyridoxine HCl (Pyridoxine Hydrochloride) 50 Mg Tab, 25 MG PO Q4HPRN PRN for 7 Days, #18 TAB Prov:PANCHO RO MD 11/04/24 Reported Medications Ferrous Sulfate (FERROUS SULFATE) 140 Mg Tab, 140 MG PO, TAB 07/10/17 Vit W/ Ferrous Fumara ( One Daily) Daily Tab, 1 TAB PO DAILY, #90 TAB 3 Refills 07/10/17 Information Source: Patient Mode of Arrival: Ambulatory Past Medical History Surgical History: Denies all surgeries SALES SPECIALIST History: No Pertinent SALES SPECIALIST History Family History Family History: Unknown Social History Smoker: Non-Smoker Alcohol: Denies ETOH Use Drugs: Denies Drug Use Lives In: Home All Other Systems: Reviewed and Negative (see hpi) Physical Exam General Appearance: No Apparent Distress, Normal HEENT: Pharynx Normal Neck: Full Range of Motion, Non-Tender Respiratory: Lungs Clear, No Respiratory Distress, Normal Breath Sounds Cardiovascular: No Murmur, Normal Peripheral Pulses, Regular Rate/Rhythm Breast Exam: Deferred Gastrointestinal: No Organomegaly, Non Tender, Soft Genitalia: Deferred Pelvic: Deferred Rectal: Deferred Extremities: Normal capillary refill, Normal range of motion Musculoskeletal : Apperance: Normal Neurologic: Alert, No Motor Deficits, Normal Affect, Normal Mood, No Sensory Deficits Cerebellar Function: Normal Reflexes: NOT DONE Skin: Dry, Normal Color, Warm, Other (Right groin fluctuant abscess proximally half-dollar size moderate tenderness on palpation no opening lesion warmth to touch surrounding erythema) Lymphatic: No Adenopathy Was a procedure done? Was a procedure done?: Yes Sedation Sedation?: No Informed consent obtained: Yes Incision and Drainage Incision and Drainage: Abscess Anesthetic: Lidocaine Preparation: Betadine Incision and Wound: Pus, Blood Informed consent obtained: Yes Risks/benefits/alt described: Yes Notes Patient tolerated well approximate 10 cc of purulent drainage with odor. Minimal blood loss Differential Diagnosis (INTG) Differential Diagnosis: Cellulitis Differential Diagnosis: Abscess X-Ray, Labs, Meds, VS Vital Signs Date Time Temp Pulse Resp B/P (MAP) Pulse Ox O2 Delivery O2 Flow Rate FiO2 11/17/24 21:30 98.1 94 16 104/84 99 98.1 Lab Test 11/17/24 21:42 Range/Units Urine Color Colorless Yellow Urine Clarity Clear Clear Urine pH 6.0 5.0-9.0 Urine Specific [place] 1.001 1.001-1.035 Urine Protein Negative Negative Urine Ketones Negative Negative Urine Blood Negative Negative /uL Urine Nitrite Negative Negative Urine Bilirubin Negative Negative Urine Urobilinogen Normal Negative mg/dL Urine Leukocyte Esterase Negative Negative /uL Urine RBC None seen 0 - 4 /hpf Urine Microscopic WBC < 1 0-5 /HPF Urine Squamous Epithelial Cells None seen <5 /hpf Urine Bacteria Few H None Seen /hpf Urine Glucose Normal Normal mg/dL X-Ray, Labs, Meds, VS Comment See procedure note. UA shows no signs and symptoms of infection patient currently on Keflex Patient given Rocephin 1 g IM. Advised to continue the course of Keflex as prescribed. Advised to follow up with her OB appointment scheduled wound re- evaluation in two days ER return precautions given patient indicates understanding agrees with discharge plan Time of 1ST Reevaluation: 21:41 Reevaluation 1ST: Unchanged Time of 2ND Reevaluation: 22:31 Reevaluation 2ND: Improved Patient Education/Counseling: Diagnosis, Treatment, Need For Follow Up Family Education/Counseling: No Family Present SEPSIS Sepsis Screen Date sepsis recognized/suspect: Nov 17, 2024 Time Sepsis recognized/suspect: 2131 Recent Procedure: No On Antibiotic Therapy: Yes Respiratory Rate >20: No Heart Rate >90: No Temp<36 C (96.8 F) or >38.3 C: No SBP <90 or MAP <65 mmHG: No New Acute Mental Status Change: No Is the patient on CPAP, BIPAP,: No Vital Signs Date Time Temp Pulse Resp B/P (MAP) Pulse Ox O2 Delivery O2 Flow Rate FiO2 11/17/24 21:30 98.1 94 16 104/84 99 98.1 Departure 1 Departure Time of Disposition: 22:31 Impression: Primary Impression: Abscess of groin, right Disposition: 01 HOME / SELF CARE / HOMELESS Condition: Stable Discharged With: Self Critical Care Note Critical Care Time?: No Stability Stability form required: EMILIANO Farley Nov 17, 2024 22:33
[2024-11-17] MEDS: cefTRIAXone SOD 1,000 MG VL IM ONE (22:37)
[2024-11-17 22:40] VITALS: BP 108/59; TEMP 98.1
[2024-11-17 22:50] VITALS: PULSE 83; RESP 19; O2SAT 99
== END 2024-11-17 22:55 | disposition home or self-care (01) ==
LOC: ER 21:27
DX: O99.712 Diseases of the skin and subcutaneous tissue complicating pregnancy, second trimester (principal); L02.214 Cutaneous abscess of groin; Z3A.26 26 weeks gestation of pregnancy; Z88.0 Allergy status to penicillin; Z88.1 Allergy status to other antibiotic agents; Z88.5 Allergy status to narcotic agent
CPT/HCPCS: 10060; 81001; 96372; 99283; J0696; J2003

== ENCOUNTER 2025-01-03 10:56 | Emergency (ER) | payer MEDICAID, OTHER | END 2025-01-03 11:04 | disposition left against medical advice (07) | LOC: ER 10:56 → LDRP 11:10 → UNDOADMOB 11:10 | DX: N89.8 Other specified noninflammatory disorders of vagina (principal); Z53.21 Procedure and treatment not carried out due to patient leaving prior to being seen by health care provider ==

== ENCOUNTER 2025-01-12 01:24 | Emergency (ER) | payer MEDICAID ==
[~2025-01-12] VITALS: Ht 165.1 cm; Wt 85.6 kg
[2025-01-12 01:27] VITALS: O2SAT 98
--- NOTE | 2025-01-12 03:27 | ED.PDOC ---
History of Present Illness(SKN HPI Comments PT CAME TO THE ER WITH CC OF BOIL/ABCESS ON HER VAGINA, PT STATES THAT IT HAS BEEN REOCCURING SINCE WITH UNKNOWN CAUSE, PT STATES, "I COME IN, THEY DRAIN IT, AND THEN I GO HOME" PT IS A&OX4 RR EVEN AND REGULAR NO DISTRESS NOTED AT THIS TIME. PT DENIES ALL OTHER SYMPTOMS AT THIS TIME PATIENT STATES 32 WEEKS . WAS SEEN BY A BEE ICT ANALYST TWO WEEKS AGO CYST WAS DRAINED AND PIECE OF IT WAS SENT FOR BIOPSY. PATIENT STATES SHE WAS STARTED ON AUGMENTIN AND CURRENTLY HAS A FEW DOSES LEFT. SHE DENIES FEVER, CHILLS, ABDOMINAL PAIN, CRAMPING, URINARY SYMPTOMS, VAGINAL BLEEDING, OR VAGINAL SPOTTING. Chief Complaint: Abscess Time Seen by MD: 01:40 Primary Care Provider: NONE History of Present Illness: Nurses Notes, Medications, Allergies Allergies: Coded Allergies: Doxycycline (Verified Allergy, Unknown, 10/10/24) Penicillins (Verified Allergy, Unknown, 10/10/24) Tramadol (Verified Allergy, Unknown, 10/10/24) Home Meds Active Scripts Acetaminophen (Tylenol Extra Strength) 500 Mg Tab, 1000 MG PO Q6HP PRN, #30 TAB Prov:RYDER HASSAN MD 11/12/24 Cephalexin Monohydrate (Cephalexin) 500 Mg Cap, 1 CAP PO QID for 10 Days, #40 CAP Prov:RYDER HASSAN MD 11/12/24 Vit W/ Ferrous Fumara ( One Daily) Daily Tab, 1 TAB PO DAILY, #90 TAB 3 Refills Prov:PANCHO RO MD 11/04/24 Pyridoxine HCl (Pyridoxine Hydrochloride) 50 Mg Tab, 25 MG PO Q4HPRN PRN for 7 Days, #18 TAB Prov:PANCHO RO MD 11/04/24 Reported Medications Ferrous Sulfate (FERROUS SULFATE) 140 Mg Tab, 140 MG PO, TAB 07/10/17 Vit W/ Ferrous Fumara ( One Daily) Daily Tab, 1 TAB PO DAILY, #90 TAB 3 Refills 07/10/17 Information Source: Patient Mode of Arrival: Ambulatory Past Medical History Surgical History: Denies all surgeries ICT ANALYST History: No Pertinent ICT ANALYST History Family History Family History: Unknown Social History Smoker: Non-Smoker Alcohol: Denies ETOH Use Drugs: Denies Drug Use Lives In: Home All Other Systems: Reviewed and Negative (SEE HPI) Physical Exam General Appearance: No Apparent Distress, Normal HEENT: Pharynx Normal Neck: Full Range of Motion, Non-Tender Respiratory: Lungs Clear, No Respiratory Distress, Normal Breath Sounds Cardiovascular: No Murmur, Normal Peripheral Pulses, Regular Rate/Rhythm Breast Exam: Deferred Gastrointestinal: No Organomegaly, Non Tender, No Pulsatile Mass, Normal Bowel Sounds, Soft Genitalia: Deferred Pelvic: Other (Left labia marble size cystic lesion with no erythema or drainage (senior software development manager EMT Michaela) ) Rectal: Deferred Extremities: Normal capillary refill, Normal range of motion, No pedal edema Musculoskeletal : Apperance: Normal Neurologic: Alert, No Motor Deficits, Normal Affect, Normal Mood, No Sensory Deficits Cerebellar Function: Normal Reflexes: NOT DONE Skin: Dry, Normal Color, Warm Lymphatic: No Adenopathy Was a procedure done? Was a procedure done?: Yes Sedation Sedation?: No Informed consent obtained: Yes Incision and Drainage Incision and Drainage: Other (Bartholin Cyst left labia) Anesthetic: Other (Hurricaine spray) Preparation: Betadine (X3) Incision and Wound: Pus, Blood, Amount (Small) Informed consent obtained: Yes Risks/benefits/alt described: Yes Notes Patient tolerated well with minimal discomfort Differential Diagnosis (INTG) Differential Diagnosis: Cellulitis Differential Diagnosis: Abscess X-Ray, Labs, Meds, VS Vital Signs Date Time Temp Pulse Resp B/P (MAP) Pulse Ox O2 Delivery O2 Flow Rate FiO2 01/12/25 03:32 97.8 100 18 98/63 (75) 97.8 01/12/25 01:27 97.4 104 16 108/69 98 97.4 X-Ray, Labs, Meds, VS Comment See procedure note Advised patient to continue with antibiotics as prescribed. Advised to follow up with her OBGYN for biopsy results. Advised to rest increase p.o. fluids with electrolytes consider taking Sitz baths for the pain discomfort into encourage drainage. ER return precautions given patient indicates understanding agrees with discharge plan of care Time of 1ST Reevaluation: 01:40 Reevaluation 1ST: Unchanged Time of 2ND Reevaluation: 03:27 Reevaluation 2ND: Improved Patient Education/Counseling: Diagnosis, Treatment, Need For Follow Up Family Education/Counseling: No Family Present SEPSIS Sepsis Screen Date sepsis recognized/suspect: Jan 12, 2025 Time Sepsis recognized/suspect: 0131 Recent Procedure: No On Antibiotic Therapy: No Respiratory Rate >20: No Heart Rate >90: Yes Temp<36 C (96.8 F) or >38.3 C: No SBP <90 or MAP <65 mmHG: No New Acute Mental Status Change: No Is the patient on CPAP, BIPAP,: No Vital Signs Date Time Temp Pulse Resp B/P (MAP) Pulse Ox O2 Delivery O2 Flow Rate FiO2 01/12/25 03:32 97.8 100 18 98/63 (75) 97.8 01/12/25 01:27 97.4 104 16 108/69 98 97.4 Departure 1 Departure Time of Disposition: 03:27 Impression: Primary Impression: Cyst of Bartholin gland duct Disposition: HOME / SELF CARE / HOMELESS Condition: Stable Discharged With: Self Critical Care Note Critical Care Time?: No Stability Stability form required: EMILIANO Farley Jan 12, 2025 03:27
[2025-01-12 03:32] VITALS: BP 98/63; PULSE 100; RESP 18; TEMP 97.8
== END 2025-01-12 04:21 | disposition home or self-care (01) ==
LOC: ER 01:24
DX: O99.713 Diseases of the skin and subcutaneous tissue complicating pregnancy, third trimester (principal); N75.0 Cyst of Bartholin's gland; Z3A.32 32 weeks gestation of pregnancy; Z88.0 Allergy status to penicillin; Z88.1 Allergy status to other antibiotic agents; Z88.5 Allergy status to narcotic agent
CPT/HCPCS: 56420

== ENCOUNTER 2025-01-14 18:12 | Observation (INO) | payer MEDICAID ==
--- NOTE | 2025-01-14 19:07 | DVHDS2 ---
Physician Discharge Progress N Final Diagnosis: Bacterial Vaginosis Secondary Diagnosis: IUP at 35w0d Operations or Procedures: Operations or Procedures SUBJECTIVE Major Mccurdy is a 29 yo with no care and IUP at 35w0d presenting for lost mucus plug Patient states that a month ago she started losing her mucus plug and is still losing it today. Patient expands that every time she wipes after using the bathroom, there is whitish green mucus. Today at 1700, she also began feeling some pelvic pressure and intermittent cramping. Denies leaking fluid and denies vaginal bleeding. States positive movement. Denies pelvic itching or malodor. Denies dysuria, urinary frequency or urinary urgency. Denies headache, blurry vision, or epigastric pain. Had a cyst removed from her L labia and is currently on penicillin PNC: none. Patient states she did not want to deal with insurance at first and then changed insurances and could not be seen that late in the LMP: 04/2024. Patient is unsure of the date Based on a LMP previously input into the EMR, patient would be 34w1d. However, she states that she had a 7 week US that had a due date of 02/18/2025 (35w0d) Review of Systems: Neuro: No complaints Heart: No complaints Lungs: No complaints GI: No complaints : Mild pelvic pressure and cramping Skin: No complaints Extremities: No complaints OBJECTIVE VSS FHR: Baseline: 135 Variability: Moderate Accelerations: Present Decelerations: Absent Category: 1 UCs: none noted Neuro: A&O x4. No apparent distress. Affect appropriate Heart: Regular rate and rhythm Lungs: Clear bilaterally GI: Gravid. No tenderness : SSE discussed and performed with consent. Copious amounts of white discharge noted in vaginal vault with sporatic clumps. Cervix visualized and closed Skin: Dry and intact. No rashes or lesions Extremities: Cap refill WNL. Wet Mount Results: few WBC, many bacteria, many epithelial cells ASSESSMENT 29 yo with IUP at 35w0d Not in labor Category 1 Tracing No care Bacterial Vaginosis PLAN -Discussed patient presentation and wet mount results with Dr Weinstein. Metronidazole PO 500mg BID x 7 days. Discussed importance of taking full course as prescribed. Discussed ways to promote vaginal hygiene, especially when taking antibiotics. Recommended patient begin taking probiotics -Emphasized importance of appointments for health of mom and baby. Patient verbalizes understanding and states she will discuss with her boat buffer plastic -GC/CT in urine sent to lab, as patient may plan on delivering here -Discussed labor precautions and kick counts. Answered all patient questions and concerns. Patient verbalizes understanding. Condition on Discharge: Good Disposition: Home Discharge Instructions: Diet: Regular Activity: No Restrictions, As Tolerated Medications: Metronidazole 500mg BID x 7 days Follow Up Care: Discharge Statement: "Patient was advised to return to the ER or call 911 if any headaches, dizziness, shortness of breath, chest pain, abdominal pain, bleeding, fevers, or worsening of medical condition. Patient was counseled about treatment plan, medications, possible side effects, patientverbalized understanding. All questions were answered to the best of my ability. This discharge took greater then 30 minutes in planning, reviewing documentation, counseling the patient, and discussing with other team members." Visit Coding OBGYN Date of Service: Jan 14, 2025 Billing Provider: RAFA RILEY CNM RESOURCE ANALYST Common Visit Codes: 76102-[id number] INP/OBS CARE (HIGH) RESOURCE ANALYST Procedure Codes: 52664-81- NON-STRESS TEST RAFA RILEY CNM Jan 14, 2025 19:07
[2025-01-14 20:26] LABS: Vaginal Trichomonas Not Present
[2025-01-14 20:27] LABS: Vaginal Bacteria Many; Vaginal Clue Cells None Seen; Vaginal Epithelial Cells Many
[2025-01-14] MEDS ORDERED: METR-344 PO (20:57)
[2025-01-17 04:06] LABS: Chlamydia Trachomatis, NAA Negative (Negative); Neisseria gonorrhoeae, NAA Negative (Negative)
== END 2025-01-14 21:15 | disposition home or self-care (01) ==
LOC: LDRP 18:12
PROVIDERS: ADMIT Obstetrics & Gynecology; ATTEND Obstetrics & Gynecology
DX: O23.593 Infection of other part of genital tract in pregnancy, third trimester (principal); Z3A.35 35 weeks gestation of pregnancy; Z98.890 Other specified postprocedural states
CPT/HCPCS: 59025; 81002; 87210; 87491; 87591; 94760; G0378

== ENCOUNTER 2025-01-16 12:13 | Outpatient (CLI) | payer MEDICAID ==
[~2025-01-16 12:13] MED LIST changes: +METR-344 PO
[2025-01-16 12:56] LABS: Hematocrit 33.1 % (36.0-46.0); Hemoglobin 10.8 g/dL (12.2-16.2); Mean Corpuscular Hemoglobin 25.5 pg (28.0-32.0); Mean Corpuscular Volume 78.0 fL (80.0-100.0); Nucleated Red Blood Cells % 0.0 %
[2025-01-16 13:31] LABS: Thyroid Stimulating Hormone 1.76 uIU/mL (0.55-4.78)
[2025-01-18 03:07] LABS: Chlamydia Trachomatis, NAA Negative (Negative); Neisseria gonorrhoeae, NAA Negative (Negative)
== END 2025-01-16 17:00 | disposition home or self-care (01) ==
LOC: LAB 12:13
PROVIDERS: ATTEND Obstetrics & Gynecology
DX: O23.40 Unspecified infection of urinary tract in pregnancy, unspecified trimester (principal); N39.0 Urinary tract infection, site not specified; Z11.3 Encounter for screening for infections with a predominantly sexual mode of transmission; Z31.430 Encounter of female for testing for genetic disease carrier status for procreative management; Z20.09 Contact with and (suspected) exposure to other intestinal infectious diseases; Z3A.00 Weeks of gestation of pregnancy not specified
CPT/HCPCS: 36415; 83036; 84144; 84443; 84702; 85025; 86703; 86762; 86780; 86787; 86850; 86900; 86901; 87086; 87340

== ENCOUNTER 2025-02-18 09:12 | Observation (INO) | payer MEDICAID ==
[2025-02-18 11:31] LABS: Hematocrit 31.6 % (36.0-46.0); Hemoglobin 10.8 g/dL (12.2-16.2); Mean Corpuscular Hemoglobin 25.9 pg (28.0-32.0); Mean Corpuscular Volume 75.4 fL (80.0-100.0); Nucleated Red Blood Cells % 0.1 %
[2025-02-18 11:49] LABS: INR 0.92 (0.9-1.15); Partial Thromboplastin Time 25.4 SEC (24.5-34.5); Prothrombin Time 9.8 sec (9.3-11.8)
[2025-02-18 12:02] LABS: Alanine Aminotransferase 16 U/L (7-40); Albumin 3.8 g/dL (3.2-4.8); Anion Gap 9 (5-15); Calcium 9.3 mg/dL (8.7-10.4); Carbon Dioxide 21 mmol/L (20-31); Chloride 106 mmol/L (98-107); Potassium 3.8 mmol/L (3.5-5.1); Total Protein 6.9 g/dL (5.7-8.2); Uric Acid 3.8 mg/dL (3.1-7.8)
[2025-02-18 12:03] LABS: Bilirubin, Total 0.4 mg/dL (0.2-1.0)
[2025-02-18 12:05] LABS: Protein, Urine 19.7 mg/dL (1-14)
[2025-02-18 12:07] LABS: Urine Protein, UAD Negative (Negative)
[2025-02-18 12:08] LABS: Alkaline Phosphatase 131 U/L (46-116); BUN/Creatinine Ratio 10.0 (10.0-20.0); Blood Urea Nitrogen < 5 mg/dL (9-23); Glucose 109 mg/dL (74-106); Sodium 136 mmol/L (136-145)
--- NOTE | 2025-02-18 12:43 | DVH ---
LIMITED OB ULTRASOUND > 14 WKS: HISTORY: No PNC TECHNIQUE: Multiple real-time grayscale images of the gravid uterus with duplex Doppler color flow and M-mode spectral analysis. TRANSDUCER: Transabdominal COMPARISON: US OB ULTRASOUND COMP GTR 14 WKS on DOS: 11/04/24, US OB ULTRASOUND COMP GTR 14 WKS on DOS: 10/10/24 FINDINGS: IUP single live fetus at 38 weeks and 6 daysbased on composite averages of the BPD, head circumference, abdominal circumference and femur length Estimated weight 3597 grams heart rate 144.35 beats per minute THIEN 13.54 cm Cervix is not evaluated Cephalic Presentation Grade 2, anterior Placenta without previa or abruption. Limited assessment of anatomy secondary to advanced gestational age. Grossly, heart, stomach, kidneys, bladder are within normal limits. IMPRESSION: IUP single live fetus at 38 weeks and 6 days AUA corresponding to an VICENTE of 02/26/2025
--- NOTE | 2025-02-18 15:10 | DVHDS2 ---
Physician Discharge Progress N Final Diagnosis: CRAMPING .,NO CARE Operations or Procedures: Operations or Procedures NST REACTIVE REVIWED,SONO Other Interventions Other Interventions PT ADVISED TO GO TO [facility] TODAY OR IN ONE DAY RISK OF IUFD D/W PT Condition on Discharge: Good Disposition: Home Discharge Instructions: Diet: Regular Activity: No Restrictions, As Tolerated Medications: NA Follow Up Care: Specialist: ONE DAY AT [facility] Discharge Statement: "Patient was advised to return to the ER or call 911 if any headaches, dizziness, shortness of breath, chest pain, abdominal pain, bleeding, fevers, or worsening of medical condition. Patient was counseled about treatment plan, medications, possible side effects, patientverbalized understanding. All questions were answered to the best of my ability. This discharge took greater then 30 minutes in planning, reviewing documentation, counseling the patient, and discussing with other team members." Visit Coding OBGYN Date of Service: Feb 18, 2025 Billing Provider: EPI AGUILERA DO MARBLE HELPER Common Visit Codes: 75324-[id number] OBS CARE (HIGH) MARBLE HELPER Procedure Codes: 08961-87- NON-STRESS TEST EPI AGUILERA DO Feb 18, 2025 15:10
== END 2025-02-18 12:43 | disposition home or self-care (01) ==
LOC: LDRP 09:12
PROVIDERS: ADMIT Obstetrics & Gynecology; ATTEND Obstetrics & Gynecology
DX: O62.9 Abnormality of forces of labor, unspecified (principal); O42.913 Preterm premature rupture of membranes, unspecified as to length of time between rupture and onset of labor, third trimester; R79.1 Abnormal coagulation profile; Z3A.40 40 weeks gestation of pregnancy; Z98.890 Other specified postprocedural states; Z79.899 Other long term (current) drug therapy
CPT/HCPCS: 36415; 59025; 76805; 80053; 81001; 81002; 82570; 84112; 84156; 84550; 85025; 85610; 85730; 94760; A4649; G0378